=== PATIENT | female | born 1945 | race Caucasian/White ===

== ENCOUNTER → 2017-01-01 | Outpatient (CLI) | payer OTHER | LOC: CIMAGING 12:51 | PROVIDERS: ATTEND Family Medicine | DX: R07.9 Chest pain, unspecified (principal); R68.83 Chills (without fever); R06.02 Shortness of breath; F17.200 Nicotine dependence, unspecified, uncomplicated; M51.34 Other intervertebral disc degeneration, thoracic region | CPT/HCPCS: 71020-PO ==

== ENCOUNTER → 2017-05-22 | Outpatient (CLI) | payer OTHER | LOC: CIMAGING 10:25 | PROVIDERS: ATTEND Family Medicine | DX: Z12.31 Encounter for screening mammogram for malignant neoplasm of breast (principal) | CPT/HCPCS: G0202 ==

== ENCOUNTER → 2017-07-24 | Outpatient (CLI) | payer OTHER | LOC: CIMAGING 12:27 | PROVIDERS: ATTEND Family Medicine | DX: R91.8 Other nonspecific abnormal finding of lung field (principal); R91.1 Solitary pulmonary nodule | CPT/HCPCS: 71046-PO ==

== ENCOUNTER → 2018-04-03 | Outpatient (CLI) | payer OTHER | LOC: CIMAGING 12:30 | PROVIDERS: ATTEND Family Medicine | DX: R07.89 Other chest pain (principal); J44.9 Chronic obstructive pulmonary disease, unspecified; R91.1 Solitary pulmonary nodule; M81.0 Age-related osteoporosis without current pathological fracture | CPT/HCPCS: 71046-PO; 71111-PO ==

== ENCOUNTER → 2018-04-21 | Outpatient (CLI) | payer OTHER | LOC: CIMAGING 09:58 | PROVIDERS: ATTEND Family Medicine | DX: R91.8 Other nonspecific abnormal finding of lung field (principal); J43.2 Centrilobular emphysema; R91.1 Solitary pulmonary nodule; I70.90 Unspecified atherosclerosis; Z87.891 Personal history of nicotine dependence | CPT/HCPCS: 71250-PO ==

== ENCOUNTER → 2018-06-06 | Outpatient (CLI) | payer OTHER | LOC: CIMAGING 11:48 | PROVIDERS: ATTEND Family Medicine | DX: Z12.31 Encounter for screening mammogram for malignant neoplasm of breast (principal) ==

== ENCOUNTER → 2018-07-22 | Outpatient (CLI) | payer OTHER | LOC: CIMAGING 11:27 | PROVIDERS: ATTEND Family Medicine | DX: R91.1 Solitary pulmonary nodule (principal); J44.9 Chronic obstructive pulmonary disease, unspecified | CPT/HCPCS: 71250-PO ==

== ENCOUNTER → 2018-09-23 | Outpatient (CLI) | payer OTHER | LOC: EDSTATUS 07:55 → CIMAGING 13:09 | PROVIDERS: ATTEND Family Medicine | DX: R04.2 Hemoptysis (principal); R91.1 Solitary pulmonary nodule; Z72.0 Tobacco use | CPT/HCPCS: 71046-PO ==